=== PATIENT | male | born 1965 | race Native Hawaiian/Other Pacific Islander ===

== ENCOUNTER 2019-04-16 07:55 | Day surgery (SDC) | payer OTHER | END 2019-04-16 09:10 | disposition home or self-care (01) | LOC: OR 07:55 | PROC: 3E0R33Z Introduction of Anti-inflammatory into Spinal Canal, Percutaneous Approach (ICD-10-PCS; principal; 2019-04-16) | PROC: B01BYZZ Fluoroscopy of Spinal Cord using Other Contrast (ICD-10-PCS; 2019-04-16) | DX: M50.121 Cervical disc disorder at C4-C5 level with radiculopathy (principal) | CPT/HCPCS: J1020 ==

== ENCOUNTER 2019-05-21 07:19 | Day surgery (SDC) | payer OTHER ==
[~2019-05-21] VITALS: Ht 30.5 cm; Wt 0.5 kg
== END 2019-05-21 08:48 | disposition home or self-care (01) ==
LOC: OR 07:19
PROC: 3E0R33Z Introduction of Anti-inflammatory into Spinal Canal, Percutaneous Approach (ICD-10-PCS; principal; 2019-05-21)
PROC: B01BYZZ Fluoroscopy of Spinal Cord using Other Contrast (ICD-10-PCS; 2019-05-21)
DX: M50.121 Cervical disc disorder at C4-C5 level with radiculopathy (principal)
CPT/HCPCS: J1020